=== PATIENT | male | born 1990 | race African-American/Black ===

== ENCOUNTER 2019-06-02 08:37 | Emergency (ER) | payer OTHER ==
[2019-06-02 08:53] VITALS: RESP 18; TEMP 97.6
--- NOTE | 2019-06-02 09:11 | XR ---
EXAMINATION TYPE: XR foot complete RT DATE OF EXAM: 06/02/2019 CLINICAL HISTORY: Slip and fall injury 2 weeks ago with pain. TECHNIQUE: Frontal, lateral, and oblique images of the right foot are obtained. COMPARISON prior x-ray March 18, 1994. FINDINGS: There is no acute fracture/dislocation evident in the right foot. The joint spaces in the right foot appear within normal limits. Some flexion and varus positioning distal fourth and fifth toes. The Pereira's toe is present. The overlying soft tissue appears unremarkable. IMPRESSION: There is no acute fracture or dislocation in the right foot.
--- NOTE | 2019-06-02 10:08 | ED ---
Lower Extremity Injury HPI - General Chief Complaint: Extremity Injury, Lower Stated Complaint: Foot injury Time Seen by Provider: 06/02/19 08:54 Source: patient, RN notes reviewed Mode of arrival: ambulatory Limitations: no limitations - History of Present Illness Initial Comments: 29-year-old male presents emergency Department chief in her right foot pain. Patient states he injured 2 weeks ago when he rolled states the pain went away but started again today. He states it hurts 20 and bites across arch of his foot. Patient states it feels like sharp stabbing type pain. Patient did not switch any new footwear any other trauma. Patient offers no other complaints. - Related Data Previous Rx's Medication Instructions Recorded Ibuprofen [Motrin] 600 mg PO Q8HR PRN #30 tab 06/02/19 Review of Systems ROS Statement: Those systems with pertinent positive or pertinent negative responses have been documented in the HPI. ROS Other: All systems not noted in ROS Statement are negative. Past Medical History Past Medical History: No Reported History History of Any Multi-Drug Resistant Organisms: None Reported Past Surgical History: No Surgical Hx Reported Past Psychological History: No Psychological Hx Reported Smoking Status: Current some day smoker Past Alcohol Use History: Occasional Past Drug Use History: Marijuana General Exam Limitations: no limitations General appearance: alert, in no apparent distress Head exam: Present: atraumatic, normocephalic, normal inspection Eye exam: Present: normal appearance, PERRL, EOMI. Absent: scleral icterus, conjunctival injection, periorbital swelling Respiratory exam: Present: normal lung sounds bilaterally. Absent: respiratory distress, wheezes, rales, rhonchi, stridor Cardiovascular Exam: Present: regular rate, normal rhythm, normal heart sounds. Absent: systolic murmur, diastolic murmur, rubs, gallop, clicks Extremities exam: Present: other (Right foot there is tenderness over the arch, heel the foot there is obvious deformity, neurovascular intact no ankle tenderness no laxity noted) Course Vital Signs 06/02/19 08:50 Temperature 97.6 F Pulse Rate 67 Respiratory 18 Rate Blood Pressure 127/92 O2 Sat by Pulse 100 Oximetry Medical Decision Making - Medical Decision Making Patient's x-rays are negative for acute fracture. Symptoms are consistent with plantar fasciitis. Patient started on anti-inflammatories, ice rest elevation. Return parameters were discussed. Disposition Clinical Impression: Right foot pain, Plantar fasciitis of right foot Disposition: HOME SELF-CARE Condition: Stable Instructions (If sedation given, give patient instructions): Plantar Fasciitis (ED), Plantar Fasciitis Exercises (ED) Additional Instructions: Please return to the Emergency Department if symptoms worsen or any other concerns. Prescriptions: Ibuprofen [Motrin] 600 mg PO Q8HR PRN #30 tab PRN Reason: Pain Is patient prescribed a controlled substance at d/c from ED?: No Referrals: None,Stated [Primary Care Provider] - 1-2 days Js Clifford MD [STAFF PHYSICIAN] - 1-2 days Time of Disposition: 10:08
[2019-06-02] MEDS ORDERED: ACET/COD 300 MG/30 MG STARTER PACK 6 TAB BTL PO STA (10:09)
[2019-06-02 10:25] VITALS: BP 120/73; PULSE 80
== END 2019-06-02 10:22 | disposition home or self-care (01) ==
LOC: EC 08:37
DX: M72.2 Plantar fascial fibromatosis (principal); F17.200 Nicotine dependence, unspecified, uncomplicated; W18.49XA Other slipping, tripping and stumbling without falling, initial encounter; Y93.89 Activity, other specified; Y92.009 Unspecified place in unspecified non-institutional (private) residence as the place of occurrence of the external cause
CPT/HCPCS: 99283

== ENCOUNTER 2020-07-14 01:07 | Emergency (ER) | payer OTHER ==
[2020-07-14 01:17] VITALS: RESP 18
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
[2020-07-14 03:05] LABS: Amphetamine Screen,Urine Not Detected (NotDetected); Barbiturate Screen,Urine Not Detected (NotDetected); Benzodiazepines Screen,Urine Detected (NotDetected); Cocaine Screen,Urine Not Detected (NotDetected); Methadone Screen, Urine Not Detected (NotDetected); Opiate Screen,Urine Not Detected (NotDetected); Oxycodone Screen, Urine Not Detected (NotDetected); Phencyclidine Screen,Urine Not Detected (NotDetected); Tricyclic Antidepressant,Urine Not Detected (NotDetected); Urn Cannabinoid Scrn Detected (NotDetected)
[2020-07-14 05:04] VITALS: BP 127/81; PULSE 91; TEMP 97.9
== END 2020-07-14 05:04 | disposition home or self-care (01) ==
LOC: EC 01:07
DX: F32.9 Major depressive disorder, single episode, unspecified (principal); R45.851 Suicidal ideations; F17.200 Nicotine dependence, unspecified, uncomplicated; Z88.5 Allergy status to narcotic agent; Z88.2 Allergy status to sulfonamides
CPT/HCPCS: 80306; 82075; 99285